=== PATIENT | female | born 1980 | race Caucasian/White ===

== ENCOUNTER 2017-08-31 22:06 | Emergency (ER) | payer SELFPAY ==
[~2017-08-31] VITALS: Ht 167.6 cm; Wt 54.0 kg
[2017-08-31 22:57] VITALS: Ht 167.6 cm; Wt 54.0 kg
== END 2017-09-01 14:48 | disposition left against medical advice (07) ==
LOC: E/R 22:06
DX: Z53.21 Procedure and treatment not carried out due to patient leaving prior to being seen by health care provider (principal)